=== PATIENT | male | born 1975 | race Caucasian/White ===

== ENCOUNTER 2019-02-23 21:30 | Emergency (ER) | payer OTHER ==
[~2019-02-23] VITALS: Ht 175.3 cm; Wt 137.0 kg
[2019-02-23 21:48] VITALS: BP 145/75; Ht 175.3 cm; Wt 137.0 kg
[2019-02-23 23:17] LABS: UA SPECIFIC GRAVITY 1.025 (1.005-1.035); microscopic required? YES; urine erythrocyte 3+ (NEGATIVE)
== END 2019-02-23 23:37 | disposition home or self-care (01) ==
LOC: ED 21:30
PROVIDERS: Specialist
DX: N39.0 Urinary tract infection, site not specified (principal); Z98.84 Bariatric surgery status
CPT/HCPCS: 87491; 87591; J0696